=== PATIENT | female | born 1985 | race Caucasian/White ===

== ENCOUNTER 2017-05-15 19:16 | Emergency (ER) | payer SELFPAY ==
--- NOTE | 2017-05-15 21:15 | ED.PDOC ---
History of Present Illness - General Chief Complaint: General Stated Complaint: lump in middle of her chest causing pressure Time Seen by Provider: 05/15/17 21:12 Source: patient Exam Limitations: no limitations - History of Present Illness Initial Comments: The patient is a 32-year-old female presenting to the emergency room withpain over her xiphoid process. Pain has been present for the last 24 hours and she feels like there is a knot there. Palpation of the area shows no evidence of any unusual swelling. Xiphoid is palpable and tender to palpation. There is no erythema. No obvious deformity. Lungs are clear. She does not remember any trauma in the area. She has not had pain there before. No syncope or near-syncope. No areas of unusual swelling or pain elsewhere. She reports that she has a history of asthma but no other significant past medical history. No weight changes. No unusual lymphadenopathy. Timing/Duration: 24 hours Severity: mild Improving Factors: nothing Worsening Factors: nothing Associated Symptoms: denies symptoms Review of Systems - Review of Systems Constitutional: States: no symptoms reported EENTM: States: no symptoms reported Respiratory: States: no symptoms reported Cardiology: States: chest pain Gastrointestinal/Abdominal: States: no symptoms reported Genitourinary: States: no symptoms reported Musculoskeletal: States: no symptoms reported Skin: States: no symptoms reported Neurological: States: no symptoms reported Endocrine: States: no symptoms reported All other Systems: No Change from Baseline Physical Exam - Physical Exam General Appearance: Alert, Anxious, No apparent distress Eye Exam: bilateral normal Ears, Nose, Throat: hearing grossly normal, normal ENT inspection Neck: full range of motion, supple Respiratory: lungs clear, normal breath sounds, no respiratory distress, no accessory muscle use, other - enderness to palpation over the xiphoid process. No obvious deformity. No erythema. Cardiovascular/Chest: normal peripheral pulses, regular rate, rhythm, no edema Peripheral Pulses: radial,right: 2+, radial,left: 2+, dorsalis pedis,right: 2+, dorsalis pedis,left: 2+ Gastrointestinal/Abdominal: non tender, soft Rectal Exam: deferred Extremity: normal range of motion, no pedal edema, normal capillary refill Neurologic: spud driller II-XII nml as tested, alert, oriented x 3 - he patient is very anxious Skin Exam: normal color Progress - Progress Progress: 05/15/17 21:15 the patient's 32-year-old female presenting to the emergency room secondary to pain and mild swelling reportedly over her xiphoid process. I do not see anything significantly pathological here. She does have inflammation over the xipho-sternal junction, most likely from some mild unremembered trauma. she should take 2 Aleve twice daily for the next week with food as recommended. If there is significant worsening or change in symptoms then re- evaluation can be done. No x-ray is warranted at this time. No blood work is warranted at this time. She should follow up with her primary care doctor towards the end of the week if it is not improving. Topical icy hot or Biofreeze may help symptomatically. Departure - Departure Clinical Impression: Xiphoid pain Disposition: Discharge to Home or Self Care Condition: Fair Departure Forms: ED Discharge - Pt. Copy, Patient Portal Self Enrollment Instructions: DI for Sternum Contusion Diet: regular diet Activity: increase activity as tolerated Additional Instructions: the patient's 32-year-old female presenting to the emergency room secondary to pain and mild swelling reportedly over her xiphoid process. I do not see anything significantly pathological here. She does have inflammation over the xipho-sternal junction, most likely from some mild unremembered trauma. she should take 2 Aleve twice daily for the next week with food as recommended. If there is significant worsening or change in symptoms then re- evaluation can be done. No x-ray is warranted at this time. No blood work is warranted at this time. She should follow up with her primary care doctor towards the end of the week if it is not improving. Topical icy hot or Biofreeze may help symptomatically.
[2017-05-15 21:16] VITALS: BP 121/72; TEMP 98.7; O2SAT 99
== END 2017-05-15 21:28 | disposition home or self-care (01) ==
LOC: ER 19:16
DX: R07.9 Chest pain, unspecified (principal)

== ENCOUNTER 2017-09-13 23:09 | Emergency (ER) | payer SELFPAY ==
[2017-09-13 23:23] VITALS: TEMP 98.7
[2017-09-13] MEDS ORDERED: KETOROLAC TROMETHAMINE INJ 30 MG/ML VIAL IM ONE (23:23)
--- NOTE | 2017-09-13 23:28 | ED.PDOC ---
History of Present Illness - General Chief Complaint: Upper Extremity Injury Stated Complaint: rt elbow pain Time Seen by Provider: 09/13/17 23:19 Source: patient Exam Limitations: no limitations - History of Present Illness Initial Comments: Patient presents with right elbow pain after a fall last night. She says that she thinks she struck the elbow directly on the floor. Pain is in the elbow joint with radiation posteriorly to the right shoulder and dorso-medially to the right wrist and 4th and 5th digits. The pain is throbbing with a shooting radiation. Worse with movement, better with rest. She has numbness along dorso- medial aspect of the forearm and the right fourth and fifth digits. Denies previous injuries to the area. No other symptoms. Timing/Duration: 24 hours Severity: moderate Improving Factors: rest Worsening Factors: movement Associated Symptoms: other - see HPI Allergies/Adverse Reactions: Allergies Sulfa Antibiotics Allergy (Verified 09/13/17 23:24) Home Medications: Ambulatory Orders Albuterol Inhaler [Ventolin Hfa Inhaler] 1 puff INH 05/15/17 Review of Systems - Review of Systems Constitutional: States: no symptoms reported EENTM: States: no symptoms reported Respiratory: States: no symptoms reported Cardiology: States: no symptoms reported Gastrointestinal/Abdominal: States: no symptoms reported Genitourinary: States: no symptoms reported Musculoskeletal: States: see HPI Skin: States: no symptoms reported Neurological: States: see HPI Endocrine: States: no symptoms reported Hematologic/Lymphatic: States: no symptoms reported Past Medical History (General) - Patient Medical History Hx Seizures: No Hx Stroke: No Hx Dementia: No Hx Asthma: Yes Hx of COPD: No Hx Cardiac Disorders: No Hx Congestive Heart Failure: No Hx Pacemaker: No Hx Hypertension: No Hx Thyroid Disease: No Hx Diabetes: No Hx Gastroesophageal Reflux: No Hx Renal Disease: No Hx Cancer: No Hx of HIV: No Hx Hepatitis C: No Hx MRSA: No - Vaccination History Hx Tetanus, Diphtheria Vaccination: Yes Hx Influenza Vaccination: Yes Immunizations Up to Date: No - Social History Hx Alcohol Use: Yes - Female History Patient is a Female of Child Bearing Age (10 -59 yrs old): Yes Patient : No Family Medical History - Family History Mother Family History: No Known Physical Exam - Physical Exam General Appearance: Alert Eye Exam: bilateral normal Ears, Nose, Throat: normal ENT inspection Neck: non-tender, full range of motion, supple Respiratory: chest non-tender, lungs clear, normal breath sounds Cardiovascular/Chest: normal peripheral pulses, regular rate, rhythm Gastrointestinal/Abdominal: normal bowel sounds, non tender, soft Extremity: other - TTP over the entire right elbow. Patient has pain with flexion/extension of the lower arm but has 5/5 strength. She has a shooting pain with flexing/extending the right wrist but has 5/5 strength. 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 She has decreased sensation in the 4th and 5th digits. Capillary refill is less than two seconds in all nail beds, in the entire right hand and forearm. There is pain deep in the right shoulder with abduction but she can abduct and adduct the right humerus with 5/5 strength. Right shoulder is NTTP in all areas. Neurologic: normal mood/affect, oriented x 3, other - see extremity exam DTR: 2+: Biceps, left, Biceps, right, Triceps, left, Triceps, right, Brachioradialis, left, Brachioradialis, right Skin Exam: normal color Lymphatic: no adenopathy Progress - Progress Progress: 09/14/17 00:25 Radiographs of the right elbow, shoulder , and wrist showed no bony abnormalities, fractures, nor dislocations. Re-exam of the patient showed "snuff-box" tenderness of the right hand. The patient was instructed to get a repeat x-ray of her right wrist in one week. She voiced understanding and agreement with that plan. Arm sling provided. E.R. instructions given, Questions were elicited and answered. The patient voiced understanding and agreement with the care and follow-up plan. Tobacco cessation discussed and literature provided. Departure - Departure Clinical Impression: Sprain elbow/forearm, Sprain of shoulder, Wrist sprain, Tobacco abuse counseling Disposition: Discharge to Home or Self Care Condition: Good Departure Forms: ED Discharge - Pt. Copy, Patient Portal Self Enrollment Instructions: DI for Arm Pain Diet: resume usual diet Activity: increase activity as tolerated Home Medications: Ambulatory Orders Albuterol Inhaler [Ventolin Hfa Inhaler] 1 puff INH 05/15/17 Additional Instructions: See your regular doctor or return to the E.R. in one week to x-ray the right wrist again. Use tylenol or ibuprofen for pain control. Use ice on the right elbow three times per day for three days then switch to heat twice per day until healed. Use the arm sling as needed. Stop smoking. See your primary care physician regarding options for smoking cessation. Return to the E.R. for increasing pain, swelling, loss of movement, or increasing numbness.
[2017-09-13] MEDS ORDERED: ALBUTEROL SULFATE 2.5 MG/3 ML VIAL NEB ONE ×2 (23:49)
--- NOTE | 2017-09-14 00:13 | RAD ---
3 VIEWS RIGHT ELBOW RADIOGRAPHIC SERIES. INDICATIONS: Pain post fall. COMPARISONS: None. FINDINGS: No fractures, dislocations or joint effusions. No radiopaque soft tissue foreign bodies or soft tissue gas. IMPRESSION: Normal examination. Electronically signed by: Austen Menjivar MD 09/14/2017 12:12 AM CDT
--- NOTE | 2017-09-14 00:14 | RAD ---
2 VIEWS RIGHT SHOULDER RADIOGRAPHIC SERIES. INDICATIONS: Pain post fall COMPARISONS: None FINDINGS: No fractures, dislocations or radiopaque foreign bodies. Right lungs are clear. Partially visualized right ribs are intact. Right clavicle is intact. IMPRESSION: Normal 2 view right shoulder radiographic series. Electronically signed by: Austen Menjivar MD 09/14/2017 12:13 AM CDT
--- NOTE | 2017-09-14 00:15 | RAD ---
3 VIEWS RIGHT WRIST RADIOGRAPHIC SERIES. INDICATIONS: Numbness post fall. COMPARISONS: None. FINDINGS: No fractures or dislocations. No evidence of carpal bone osteonecrosis. No radiopaque soft tissue foreign bodies or soft tissue gas. IMPRESSION: Normal examination. Electronically signed by: Austen Menjivar MD 09/14/2017 12:14 AM CDT
[2017-09-14 00:52] VITALS: BP 118/69; O2SAT 97
== END 2017-09-14 00:52 | disposition home or self-care (01) ==
LOC: ER 23:09
DX: S53.401A Unspecified sprain of right elbow, initial encounter (principal); S43.401A Unspecified sprain of right shoulder joint, initial encounter; S63.501A Unspecified sprain of right wrist, initial encounter; W19.XXXA Unspecified fall, initial encounter; Y92.9 Unspecified place or not applicable
CPT/HCPCS: 73030; 73080; 73110; 94640; J1885; J7611

== ENCOUNTER 2017-09-25 05:04 | Emergency (ER) | payer SELFPAY ==
[2017-09-25 05:19] VITALS: TEMP 97.1
--- NOTE | 2017-09-25 05:31 | ED.PDOC ---
History of Present Illness - General Chief Complaint: Upper Extremity Injury Stated Complaint: Rt wrist pain Time Seen by Provider: 09/25/17 05:23 Source: patient Exam Limitations: no limitations - History of Present Illness Initial Comments: patient comes in today for severe pain to the right elbow and forearm. Patient states a week ago she fell backwards landing on her right outstretched arm. She suffered pain to the wrist and at that time x-rays in the emergency room are normal. She was told to come back to repeat x-rays if the pain persisted but she stated that she felt a follow-up. Today she had been drinking and got upset and slammed her arm and elbow down on the table without much force. Patient had sudden and severe pain to the right wrist and right proximal ulna. Additionally, patient has asthma and although she is not short of breath now she is out of her Ventolin inhaler and would like to have it refilled. She otherwise has no other medical problems. She does smoke, drink, but does not take illicit substances. She has never been sexually active with a male and is therefore not Occurred: just prior to arrival, last week Pain - Upper Extremity: severe: Elbow, right, Forearm, right, Wrist, right Method of Injury: other - see HPI Improving Factors: nothing Worsening Factors: nothing Allergies/Adverse Reactions: Allergies Sulfa Antibiotics Allergy (Verified 09/13/17 23:24) Home Medications: Ambulatory Orders Albuterol Inhaler [Ventolin Hfa Inhaler] 1 puff INH 05/15/17 Albuterol Sulfate [Ventolin Hfa] 108 mcg IN Q4HR PRN 30 Days #1 aer 09/25/17 Review of Systems - Review of Systems Constitutional: States: no symptoms reported. Denies: chills, diaphoresis, fever EENTM: States: no symptoms reported Respiratory: States: no symptoms reported Cardiology: States: no symptoms reported Gastrointestinal/Abdominal: States: no symptoms reported Genitourinary: States: no symptoms reported Musculoskeletal: States: see HPI Past Medical History (General) - Patient Medical History Hx Seizures: No Hx Stroke: No Hx Dementia: No Hx Asthma: Yes Hx of COPD: No Hx Cardiac Disorders: No Hx Congestive Heart Failure: No Hx Pacemaker: No Hx Hypertension: No Hx Thyroid Disease: No Hx Diabetes: No Hx Gastroesophageal Reflux: No Hx Renal Disease: No Hx Cancer: No Hx of HIV: No Hx Hepatitis C: No Hx MRSA: No Surgical History: other - Vaccination History Hx Tetanus, Diphtheria Vaccination: Yes Hx Influenza Vaccination: Yes - Social History Hx Tobacco Use: Yes Hx Alcohol Use: Yes - Female History Patient : No Family Medical History - Family History Mother Family History: No Known Physical Exam - Physical Exam General Appearance: Alert, No apparent distress Cardiovascular/Respiratory: regular rate, rhythm, no M/R/G, normal peripheral pulses, normal breath sounds, no respiratory distress Abdominal Exam: non-tender Elbow/Forearm Exam: swelling - swelling to the R wrist with no deformity. TTP to the wrist and distal ulna with no bruising and normal radial pulse and normal sensation Mental Status: alert, oriented x 3 Progress - Progress Progress: 09/25/17 06:07 Patient Name: RUSSELL AGUIAR Gender: Female Date of : 1985 Referring Physician: ANGELLA PINEDA Organization: [facility] Accession Number: [id number] Requested Date: September 25, 2017 05:23 Report Status: Final Requested Procedure: 1 Procedure Description: Forearm,Right Modality: CR Findings Reporting MD: Lorne Sotelo Fellow MD: Not available Dictation Time: Sales Management Trainee: Not available Data Warehouse Analyst Date: EXAM DESCRIPTION: Forearm,Right CLINICAL HISTORY: trauma/pain COMPARISON: None. FINDINGS: Right forearm, 2 views. No acute fracture or dislocation. Normal osseous mineralization. IMPRESSION: No acute fracture or dislocation Xrays are all normal. no acute fracture. However, patient is very point tender at the wrist and elbow. We have given Toradol and splinted area. Patient should follow up on Wednesday for re-exam. OTC IBU for pain - EKG/XRAY/CT XRAY: elbow Xray Comments: normal no fracture of elbow, wrist, or forearm Departure - Departure Clinical Impression: Sprain of forearm Qualifiers: Encounter type: initial encounter Laterality: right Qualified Code(s): S63.501A - Unspecified sprain of right wrist, initial encounter Disposition: Discharge to Home or Self Care Condition: Fair Departure Forms: ED Discharge - Pt. Copy, Patient Portal Self Enrollment Instructions: DI for Arm Pain Prescriptions: Albuterol Sulfate [Ventolin Hfa] 108 mcg IN Q4HR PRN 30 Days #1 aer PRN Reason: Shortness Of Breath Home Medications: Ambulatory Orders Albuterol Inhaler [Ventolin Hfa Inhaler] 1 puff INH 05/15/17 Albuterol Sulfate [Ventolin Hfa] 108 mcg IN Q4HR PRN 30 Days #1 aer 09/25/17 Additional Instructions: follow up on Wednesday in clinic to recheck arm and decide if further imaging is needed. OTC IBU 800 mg po TID prn pain.
--- NOTE | 2017-09-25 06:02 | RAD ---
EXAM DESCRIPTION: Elbow,Right 2 Views CLINICAL HISTORY: trauma/pain COMPARISON: 09/13/2017 FINDINGS: 2 views of the right elbow. No acute fracture or dislocation. Normal osseous mineralization. No joint effusion. IMPRESSION: No acute fracture or dislocation. Electronically signed by: Lorne Sotelo 09/25/2017 6:00 AM CDT
--- NOTE | 2017-09-25 06:02 | RAD ---
EXAM DESCRIPTION: Forearm,Right CLINICAL HISTORY: trauma/pain COMPARISON: None. FINDINGS: Right forearm, 2 views. No acute fracture or dislocation. Normal osseous mineralization. IMPRESSION: No acute fracture or dislocation. Electronically signed by: Lorne Sotelo 09/25/2017 6:01 AM CDT
--- NOTE | 2017-09-25 06:03 | RAD ---
EXAM DESCRIPTION: Wrist,Right 2 Views CLINICAL HISTORY: trauma/pain COMPARISON: None. FINDINGS: 2 views of the right wrist. No acute fracture or dislocation. Normal osseous mineralization. IMPRESSION: No acute fracture or dislocation. Electronically signed by: Lorne Sotelo 09/25/2017 6:02 AM CDT
[2017-09-25] MEDS ORDERED: KETOROLAC TROMETHAMINE INJ 60 MG/2 ML VIAL IM ONE (06:06)
[2017-09-25 06:43] VITALS: BP 101/85; O2SAT 98
== END 2017-09-25 06:30 | disposition home or self-care (01) ==
LOC: ER 05:04
DX: S63.501A Unspecified sprain of right wrist, initial encounter (principal); J45.909 Unspecified asthma, uncomplicated; Z87.891 Personal history of nicotine dependence; W22.03XA Walked into furniture, initial encounter; Y92.9 Unspecified place or not applicable
CPT/HCPCS: 73070; 73090; 73100; J1885